=== PATIENT | male | born 1955 | race Caucasian/White ===

== ENCOUNTER 2018-08-19 10:01 | Day surgery (SDC) | payer BC ==
[~2018-08-19 10:01] MED LIST: Lactated Ringers 1,000 ML IV SCH
--- NOTE | 2018-08-19 10:42 | PCM.PREANE ---
Preanesthetic Assessment - Anesthesia/Transfusion/Family Hx Anesthesia History: Prior Anesthesia Without Reaction Other Type of Anesthesia Reaction Comment: Denies any known problem in past Family History of Anesthesia Reaction: No Transfusion History: No Prior Transfusion(s) Intubation History: Unknown - Review of Systems General: No Symptoms Pulmonary: No Symptoms Cardiovascular: No Symptoms Gastrointestinal: No Symptoms, Other (h/o colon polyps) Other: Reports: None - Physical Assessment Height: 1.7 m Weight: 89.358 kg ASA Class: 2 Mental Status: Alert & Oriented x3 Airway Class: Mallampati = 2 Dentition: Reports: Normal Dentition, [place](s) (x2 (back)) Thyro-Mental Finger Breadths: 3 Mouth Opening Finger Breadths: 3 ROM/Head Extension: Full Lungs: Clear to Auscultation, Normal Respiratory Effort Cardiovascular: Regular Rate, Regular Rhythm - Allergies Allergies/Adverse Reactions: Allergies Allergy/AdvReac Type Severity Reaction Status Date / Time naproxen [From Aleve] Allergy Itching Verified 08/15/18 10:58 Dust Allergy Sneezing Uncoded 08/15/18 10:58 - Blood Blood Available: No - Anesthesia Plan Pre-Op Medication Ordered: None - Acknowledgements Anesthesia Type Planned: MAC Pt an Appropriate Candidate for the Planned Anesthesia: Yes Alternatives and Risks of Anesthesia Discussed w Pt/Guardian: Yes Pt/Guardian Understands and Agrees with Anesthesia Plan: Yes PreAnesthesia Questionnaire HEENT History: Reports: Hard of Hearing Other HEENT History: reading glasses, [employer] hearing aids Cardiovascular History: Reports: None Respiratory History: Reports: Other (See Below) Other Respiratory History: recent prescription for inhaler due to wheezing, denies lung problems Gastrointestinal History: Reports: Colon Polyp, GERD Genitourinary History: Reports: None Musculoskeletal History: Reports: Fracture Other Musculoskeletal History: fx arm as a child (was put under anesthesia to apply cast) Neurological History: Reports: Concussion Psychiatric History: Reports: None Endocrine/Metabolic History: Reports: Obesity/BMI 30+ Hematologic History: Reports: None Immunologic History: Reports: None Oncologic (Cancer) History: Reports: None Dermatologic History: Reports: None - Past Surgical History Head Surgeries/Procedures: Reports: None Cardiovascular Surgical History: Reports: None Respiratory Surgical History: Reports: None GI Surgical History: Reports: Colonoscopy (x3, last one in 2014) Male Surgical History: Reports: Vasectomy Endocrine Surgical History: Reports: None Neurological Surgical History: Reports: None Musculoskeletal Surgical History: Reports: Carpal Tunnel Oncologic Surgical History: Reports: None - SUBSTANCE USE Smoking Status *Q: Never Smoker Tobacco Use Within Last Twelve Months: Other (See Below) Days Per Week of Alcohol Use: 7 Number of Drinks Per Day: 6 Total Drinks Per Week: 42 Recreational Drug Use History: No - HOME MEDS Home Medications: Home Meds Ibuprofen 2 tab PO ASDIRECTED PRN 07/10/14 [History] Acetaminophen [Tylenol Arthritis] 1 tab PO DAILY 08/15/18 [History] Albuterol [Ventolin HFA] 2 puff INH ASDIRECTED PRN 08/15/18 [History] Calcium Carbonate [Tums] 1 tab.chew CHEW ASDIRECTED PRN 08/15/18 [History] Fish Oil/Paris-3 Fatty Acids [Fish Oil 1,000 MG] 1,000 mg PO DAILY 08/15/18 [ History] - CURRENT (IN HOUSE) MEDS Current Meds: Current Medications Lactated Ringer's (Ringers, Lactated) 1,000 mls @ 125 mls/hr IV ASDIRECTED KIMBER[place] Last Admin: 08/19/18 10:36 Dose: 125 mls/hr
[2018-08-19] MEDS ORDERED: Midazolam 1 MG/ML 2 ML SDV ONE (12:04)
[2018-08-19] MEDS ORDERED: Lidocaine 2% 5 ML SDV ONE (12:06)
[2018-08-19] MEDS ORDERED: fentaNYL 100 MCG/2 ML SDV ONE (12:06)
[2018-08-19] MEDS ORDERED: Propofol 200 MG/20 ML SDV ONE ×2 (12:06→13:27)
--- NOTE | 2018-08-19 13:51 | PCM.OPNOTE ---
- General Post-Op/Procedure Note Date of Surgery/Procedure: 08/19/18 Operative Procedure(s): Esophagogastroduodenoscopy with gastric and esophageal biopsies. Colonoscopy. Pre Op Diagnosis: Progressive heartburn. Rectal bleeding. Personal history of colon polyps. Post-Op Diagnosis: Mild to moderate gastritis. Hiatal hernia with esophagitis. No evidence of colonic neoplasia. Anesthesia Technique: MAC (ASA II) Primary Surgeon: Florian Farfan Condition: Good Free Text/Narrative:: DICTATION [id number] CPT CODE [id number]
[2018-08-19] MEDS ORDERED: Lactated Ringers 1,000 ML IV SCH (14:00)
--- NOTE | 2018-08-19 14:03 | OR ---
SURGEON: Florian Farfan M.D. DATE OF PROCEDURE: 08/19/2018 OPERATION PERFORMED: Colonoscopy. ANESTHESIA: MAC. ASA CLASSIFICATION: II. PREOPERATIVE DIAGNOSES: 1. Rectal bleeding. 2. Personal history of colon polyps. POSTOPERATIVE DIAGNOSIS: No evidence of neoplasia. DESCRIPTION OF PROCEDURE: With the patient having completed esophagogastroduodenoscopy, he was maintained in the left lateral decubitus position. The colonoscope was inserted into the rectum and advanced with minimal difficulty to the cecum. The cecum was identified by internal landmarks and external pressure. The appendiceal orifice was visualized. Cecum, ascending colon, hepatic flexure, transverse colon, splenic flexure, descending colon, sigmoid colon, and rectum were very well visualized. No tumors, polyps, diverticula, or angiodysplastic changes were noted anywhere in the lower gastrointestinal tract. Once the colonoscope was withdrawn to the rectum, it was retroflexed to visualize the anal orifice from above. Again, no tumors or polyps were seen, and there were no acute hemorrhoidal changes. The colonoscope was then straightened, the rectum aspirated, and the colonoscope removed. The patient tolerated the procedure well and was taken to recovery room in stable condition. JOE FAJARDO /[id number]
--- NOTE | 2018-08-19 14:09 | OR ---
SURGEON: Florian Farfan M.D. DATE OF PROCEDURE: 08/19/2018 OPERATION PERFORMED: Esophagogastroduodenoscopy with biopsy. ANESTHESIA: MAC. ASA CLASSIFICATION: II. PREOPERATIVE DIAGNOSIS: Progressive heartburn. POSTOPERATIVE DIAGNOSES: 1. Gastritis with esophagitis. 2. Hiatal hernia. DESCRIPTION OF PROCEDURE: The patient was taken to the endoscopy room and positioned on the endoscopy table in the left lateral decubitus position. Time-out was called for appropriate identification of the patient and procedure. Monitored anesthesia care was provided. The bite block was placed between the patient's teeth. The gastroscope was inserted through the bite block into the oropharynx and advanced with minimal difficulty through the esophagus and stomach into the duodenum where examination was carried out in a retrograde fashion. The duodenum shows no acute inflammatory changes or ulcerations. The stomach does show mild-to- moderate gastritis. Biopsies of the antrum were obtained. No ulcers were noted. The gastroscope was retroflexed to visualize the proximal stomach where the patient does have a moderate-sized hiatal hernia. No ulcers were noted proximally. The gastroscope was then straightened and slowly withdrawn aspirating the stomach as the scope was withdrawn. The hiatal hernia can be seen from above. The GE junction does show some [id number] inflammatory changes and separate biopsies of this area were obtained. The esophagus itself demonstrates good contractility. No mid or proximal lesions were identified. The vocal cords were visualized as the scope was withdrawn and noted to move symmetrically. The gastroscope was then removed with the patient having tolerated this portion of the procedure well. Following colonoscopy, he was taken to recovery room in satisfactory condition. JOE FAJARDO /[id number]
--- NOTE | 2018-08-19 14:23 | PCM48HPAN ---
Post Anesthesia Note - EVALUATION WITHIN 48HRS OF ANESTHETIC Vital Signs in Normal Range: Yes Patient Participated in Evaluation: Yes Respiratory Function Stable: Yes Airway Patent: Yes Cardiovascular Function Stable: Yes Hydration Status Stable: Yes Pain Control Satisfactory: Yes Nausea and Vomiting Control Satisfactory: Yes Mental Status Recovered: Yes Resp Rate: 15 - COMMENTS/OBSERVATIONS Free Text/Narrative:: no anesthesia problems
[2018-08-19 14:40] VITALS: BP 124/69
== END 2018-08-19 14:20 | disposition home or self-care (01) ==
LOC: MW.SDS 10:01
PROVIDERS: ATTEND Surgery
DX: K62.5 Hemorrhage of anus and rectum (principal); K29.50 Unspecified chronic gastritis without bleeding; K21.0 Gastro-esophageal reflux disease with esophagitis; B96.81 Helicobacter pylori [H. pylori] as the cause of diseases classified elsewhere; K44.9 Diaphragmatic hernia without obstruction or gangrene; M18.9 Osteoarthritis of first carpometacarpal joint, unspecified; Z86.010 Personal history of colon polyps; Z88.6 Allergy status to analgesic agent; Z91.09 Other allergy status, other than to drugs and biological substances; Z87.891 Personal history of nicotine dependence; Z80.0 Family history of malignant neoplasm of digestive organs; Z79.899 Other long term (current) drug therapy
CPT/HCPCS: 43239; 45378; J2001; J2250; J2704; J3010; J7120; 88305; 88312